=== PATIENT | female | born 1940 | race African-American/Black ===

== ENCOUNTER 2017-03-07 07:29 | Inpatient (IN) | payer MEDICARE ==
[~2017-03-07] VITALS: Ht 165.1 cm; Wt 73.9 kg
[2017-03-07] MEDS ORDERED: LOVA20TA2 PO (07:41)
[2017-03-07] MEDS ORDERED: LISI2.5T47 PO (07:41)
[2017-03-07] MEDS ORDERED: HYDR12.529 PO (07:41)
[2017-03-07] MEDS ORDERED: GLYB2.5T4 PO (07:41)
[2017-03-07] MEDS ORDERED: SODIUM CHLORIDE 0.9% 1,000 ML IV ONE (07:45)
[2017-03-07 08:00] LABS: BASOPHILS % 0.1 % (0.0-2.0); EOSINOPHILS % 0.5 % (0.0-5.0); HEMATOCRIT. 39.3 % (36.0-48.0); MEAN CORPUSCULAR HEMOGLOBIN 29.9 pg (28.0-32.0); MEAN CORPUSCULAR VOLUME 90.4 fL (81.0-99.0); MEAN PLATELET VOLUME 8.4 fl (7.4-10.4); MONOCYTES % 7.3 % (2.0-8.0); NEUTROPHILS % 75.1 % (40.0-76.0); PLATELET 199 x1000/uL (130-400); RED BLOOD CELL COUNT 4.35 mill/uL (4.2-5.4); RED CELL DISTRIBUTION WIDTH 14.4 % (11.6-14.6); WHITE BLOOD COUNT 4.3 x1000/uL (4.5-11.0)
[2017-03-07] MEDS ORDERED: DEXTROSE 50% WATER 50ML SYRINGE IV ONE ×2 (08:15→16:30)
[2017-03-07 08:16] LABS: ANION GAP 13; CALCIUM 10.2 mg/dL (8.5-10.1); CARBON DIOXIDE 28 mEq/L (21-32); CHLORIDE 103 mEq/L (98-107); INDEX HEMOLYSI 1 (1-3); INDEX ICTERIC 1 (1-4); INDEX LIPEMIC 1 (1-3); TROPONIN I < 0.02 ng/mL (0.00-0.04); UREA NITROGEN BLOOD 34 mg/dL (7-21); eGFR > 60 mL/min (>60)
[2017-03-07 09:14] LABS: CLARITY URINE CLEAR (CLEAR); COLOR URINE YELLOW (YELLOW); GLUCOSE URINE TRACE (NEGATIVE); KETONES URINE NEGATIVE (NEGATIVE); LEUKOCYTE ESTERASE URINE TRACE (NEGATIVE); NITRITE URINE NEGATIVE (NEGATIVE); OCCULT BLOOD URINE TRACE (NEGATIVE); PH URINE 6.5 (4.5-8.0); PROTEIN URINE NEGATIVE (NEGATIVE); SPECIFIC GRAVITY URINE 1.008 (1.005-1.030); UROBILINOGEN URINE 0.2 E.U./dL (0.2-1.0)
[2017-03-07 09:32] LABS: SQUAMOUS EPITHELIAL CELL URINE FEW /lpf (RARE/1+)
[2017-03-07 09:33] LABS: BACTERIA URINE TRACE; RBC URINE 0-2 /hpf (0-2); WBC URINE 0-2 /hpf (0-2)
[2017-03-07] MEDS ORDERED: DEXT 5%/0.9% NACL 1,000 ML IV ONE (13:25)
[2017-03-07] MEDS ORDERED: DEXT 10% WATER 1,000 ML IV ONE (16:26)
[2017-03-07 17:45] VITALS: BP 150/98
[2017-03-07 19:24] VITALS: BP 122/74
[2017-03-07] MEDS ORDERED: DIPHENHYDRAMINE 50MG/ML VIAL IV PRN (19:45)
[2017-03-07] MEDS ORDERED: ONDANSETRON HCL 4MG/2ML VIAL IV PRN (19:45)
[2017-03-07] MEDS ORDERED: ACETAMINOPHEN 325MG TABLET PO PRN (19:45)
[2017-03-07] MEDS ORDERED: MAGNESIUM/ALUMINUM HYDROXIDE/SIMETHICONE 30ML UDC PO PRN (19:45)
[2017-03-07] MEDS ORDERED: DEXTROSE 50% WATER 50ML SYRINGE IV PRN (19:45)
[2017-03-07] MEDS ORDERED: CLONIDINE 0.1MG TABLET PO PRN (19:45)
[2017-03-07] MEDS: LISINOPRIL 20MG TABLET PO SCH (20:32)
[2017-03-07] MEDS: BLOOD SUGAR DIAGNOSTIC STRIP TEST SCH (20:34)
[2017-03-07] MEDS: INSULIN LISPRO 100 UNITS/ML SUBCUT SCH (20:34)
[2017-03-07 23:45] VITALS: BP 115/66
[2017-03-08 04:00] VITALS: BP 130/82
[2017-03-08] MEDS: SODIUM CHLORIDE 0.9% INJ 3ML FLUSH IVF SCH ×2 (06:05→14:04)
[2017-03-08] MEDS: BLOOD SUGAR DIAGNOSTIC STRIP TEST SCH ×3 (06:05→17:05)
[2017-03-08] MEDS: INSULIN LISPRO 100 UNITS/ML SUBCUT SCH ×3 (07:50→17:05)
[2017-03-08 08:00] VITALS: BP 141/91
[2017-03-08] MEDS: LISINOPRIL 20MG TABLET PO SCH (08:33)
[2017-03-08 09:21] LABS: ALANINE AMINOTRANSFERASE 17 IU/L (13-61); ANION GAP 11; CALCIUM 9.6 mg/dL (8.5-10.1); CARBON DIOXIDE 30 mEq/L (21-32); CHLORIDE 106 mEq/L (98-107); INDEX HEMOLYSI 1 (1-3); INDEX ICTERIC 1 (1-4); INDEX LIPEMIC 1 (1-3); PHOSPHORUS 3.4 mg/dL (2.5-4.9); T4 FREE 0.99 ng/dL (0.76-1.46); UREA NITROGEN BLOOD 23 mg/dL (7-21); eGFR > 60 mL/min (>60)
[2017-03-08 09:22] LABS: THYROID STIMULATING HORMONE 0.78 uIU/mL (0.36-3.74)
[2017-03-08] MEDS ORDERED: CIPR-168 PO (10:52)
[2017-03-08] MEDS ORDERED: METF500T4 PO (10:54)
[2017-03-08 12:00] VITALS: BP 126/80
[2017-03-08 16:00] VITALS: BP 148/88
[2017-03-08 17:56] VITALS: BP 148/88
[2017-03-10 17:06] LABS: ANGIOTENSION CONVERTING ENZYME < 15 U/L (14-82)
[2017-03-11 06:21] LABS: A/G RATIO 1.1 (0.7-1.7); ALBUMIN 3.2 g/dL (2.9-4.4); ALPHA-1-GLOBULIN 0.2 g/dL (0.0-0.4); ALPHA-2-GLOBULIN 0.8 g/dL (0.4-1.0); BETA GLOBULIN 0.9 g/dL (0.7-1.3); GAMMA GLOBULINS 1.1 g/dL (0.4-1.8); M-SPIKE Not Observed g/dL (Not Observed); TOTAL PROTEIN SERUM 6.2 g/dL (6.0-8.5)
== END 2017-03-08 18:40 | disposition home or self-care (01) | DRG 637 ==
LOC: ER 07:45 → 6EST 10:28
PROVIDERS: ADMIT Internal Medicine; ATTEND Internal Medicine
DX: E11.649 Type 2 diabetes mellitus with hypoglycemia without coma (principal); G93.41 Metabolic encephalopathy; E78.00 Pure hypercholesterolemia, unspecified; I10 Essential (primary) hypertension; H40.9 Unspecified glaucoma; R63.4 Abnormal weight loss; E86.0 Dehydration; E11.51 Type 2 diabetes mellitus with diabetic peripheral angiopathy without gangrene; I83.93 Asymptomatic varicose veins of bilateral lower extremities; E21.0 Primary hyperparathyroidism; T38.3X5A Adverse effect of insulin and oral hypoglycemic [antidiabetic] drugs, initial encounter; Z82.49 Family history of ischemic heart disease and other diseases of the circulatory system
CPT/HCPCS: 36415; 71020; 80048; 80053; 81001; 82164; 82533; 82962; 83036; 83735; 83970; 84100; 84155; 84165; 84439; 84443; 84484; 85025; 87086; 93005; 96360; 96361; 99285; C1893; J1815; J7030; J7042